=== PATIENT | female | born 1960 | race Two or more races ===

== ENCOUNTER → 2017-11-21 11:11 | Outpatient (CLI) | payer OTHER ==
[~2017-11-21] VITALS: Ht 152.4 cm; Wt 84.4 kg
[~2017-11-21 11:11] MED LIST: AMOXICILLIN500 MG PO; BACLOFEN10 MG PO; BUCALSEP SPRAY30 ML MM; CATAFLAM50 MG PO; CIPRO500 MG PO; CONJUGATED ESTROGENS PO; COZAAR25 MG; COZAAR25 MG PO; DICLOFENAC POTA50 MG PO; DICLOFENAC SOD100 MG PO; ESTR0.624 PO; GILTUSS TR TAB1 EACH PO; GLUCOPHAGE XR500 MG PO; GLUCOTROL 10 MG PO; GLUCOTROL10 MG; GLUCOTROL10 MG PO; INDERAL LA120 MG PO; INDERAL LA80 MG; INDERAL PO; INTESTINEX1 CAP PO; LANTUS SOL100 UNIT/1 SUBCUTANEO; LANTUS100 U/ML; LANTUS100 U/ML SQ; LANTUS100 U/ML SUBCUTANEO; NORFLEX100MG PO; PREMARIN1.25 MG PO; PROTONIX40 MG PO; TESSALON PERLE100 M1 PO; TESSALON200 MG PO; VOLTAREM 50 MG PO; ZITHROMAX200 MG PO; ZITHROMAX500 MG PO; ZYRTEC10 MG PO
== END | disposition home or self-care (01) ==
LOC: PPHC 11:11
DX: J06.9 Acute upper respiratory infection, unspecified (principal); J02.8 Acute pharyngitis due to other specified organisms; R11.2 Nausea with vomiting, unspecified

== ENCOUNTER 2017-11-21 13:03 | Outpatient (CLI) | payer OTHER | END 2017-11-21 13:09 | disposition home or self-care (01) | LOC: LAB 13:03 | DX: J11.1 Influenza due to unidentified influenza virus with other respiratory manifestations (principal) ==

== ENCOUNTER 2018-01-31 14:26 | Outpatient (CLI) | payer OTHER | END 2018-01-31 14:34 | disposition home or self-care (01) | LOC: LAB 14:26 | DX: R50.9 Fever, unspecified (principal) ==

== ENCOUNTER → 2018-01-31 | Outpatient (CLI) | payer OTHER ==
[~2018-01-31] MED LIST changes: +MEDROLPACK PO
== END | disposition home or self-care (01) ==
LOC: PPHC 13:11
DX: B34.9 Viral infection, unspecified (principal)

== ENCOUNTER 2018-04-24 11:56 | Outpatient (CLI) | payer OTHER | END 2018-04-24 12:02 | disposition home or self-care (01) | LOC: LAB 11:56 | DX: I73.9 Peripheral vascular disease, unspecified (principal) ==

== ENCOUNTER → 2018-05-30 09:17 | Outpatient (CLI) | payer OTHER | END | disposition home or self-care (01) | LOC: LAB 09:17 | DX: B34.9 Viral infection, unspecified (principal) ==

== ENCOUNTER → 2018-07-26 07:06 | Outpatient (CLI) | payer OTHER ==
[~2018-07-26 07:06] MED LIST changes: +GABAPENTIN100 MG PO; +KENALOG-1010 MG/1 ML IM
== END | disposition home or self-care (01) ==
LOC: LAB 07:06
DX: I10 Essential (primary) hypertension (principal); E11.9 Type 2 diabetes mellitus without complications; Z12.11 Encounter for screening for malignant neoplasm of colon; E78.2 Mixed hyperlipidemia; I73.89 Other specified peripheral vascular diseases

== ENCOUNTER 2018-07-31 11:33 | Outpatient (CLI) | payer OTHER ==
[2018-07-31] MEDS ORDERED: NEURONTIN300 MG PO (13:49)
== END 2018-07-31 11:34 | disposition home or self-care (01) ==
LOC: LAB 11:33
DX: I10 Essential (primary) hypertension (principal); E11.9 Type 2 diabetes mellitus without complications; Z12.11 Encounter for screening for malignant neoplasm of colon; E78.2 Mixed hyperlipidemia

== ENCOUNTER → 2018-08-20 13:04 | Outpatient (CLI) | payer OTHER ==
[~2018-08-20 13:04] MED LIST changes: +NEURONTIN300 MG PO
== END | disposition home or self-care (01) ==
LOC: LAB 13:04
DX: N39.0 Urinary tract infection, site not specified (principal); E03.8 Other specified hypothyroidism

== ENCOUNTER 2018-08-20 16:45 | Outpatient (CLI) | payer OTHER | END 2018-08-20 17:15 | disposition home or self-care (01) | LOC: SONOGRAMA 16:45 | DX: N20.0 Calculus of kidney (principal); N39.0 Urinary tract infection, site not specified; E11.65 Type 2 diabetes mellitus with hyperglycemia; E55.9 Vitamin D deficiency, unspecified; R94.6 Abnormal results of thyroid function studies; R82.99 Other abnormal findings in urine; M54.2 Cervicalgia; M62.838 Other muscle spasm ==

== ENCOUNTER 2018-09-30 09:40 | Outpatient (CLI) | payer OTHER | END 2018-09-30 10:09 | disposition home or self-care (01) | LOC: LAB 09:40 | DX: N18.2 Chronic kidney disease, stage 2 (mild) (principal); I10 Essential (primary) hypertension; E11.21 Type 2 diabetes mellitus with diabetic nephropathy; R80.8 Other proteinuria; E11.65 Type 2 diabetes mellitus with hyperglycemia ==

== ENCOUNTER 2018-12-09 12:25 | Outpatient (CLI) | payer OTHER | END 2018-12-09 12:29 | disposition home or self-care (01) | LOC: SONOGRAMA 12:25 | DX: M75.41 Impingement syndrome of right shoulder (principal) ==

== ENCOUNTER 2018-12-10 10:34 | Outpatient (CLI) | payer OTHER | END 2018-12-10 10:40 | disposition home or self-care (01) | LOC: RAD 10:34 | DX: M75.41 Impingement syndrome of right shoulder (principal); Z12.31 Encounter for screening mammogram for malignant neoplasm of breast ==

== ENCOUNTER 2019-01-14 16:19 | Outpatient (CLI) | payer OTHER | END 2019-01-14 16:47 | disposition home or self-care (01) | LOC: LAB 16:19 | DX: J11.1 Influenza due to unidentified influenza virus with other respiratory manifestations (principal); J20.0 Acute bronchitis due to Mycoplasma pneumoniae ==

== ENCOUNTER 2019-02-19 16:07 | Emergency (ER) | payer OTHER ==
[~2019-02-19] VITALS: Ht 162.6 cm; Wt 78.0 kg
== END 2019-02-19 17:41 | disposition home or self-care (01) ==
LOC: ER 16:07
DX: L27.1 Localized skin eruption due to drugs and medicaments taken internally (principal); T38.0X5A Adverse effect of glucocorticoids and synthetic analogues, initial encounter; Y92.89 Other specified places as the place of occurrence of the external cause

== ENCOUNTER 2019-03-31 10:22 | Outpatient (CLI) | payer OTHER | END 2019-03-31 13:14 | disposition home or self-care (01) | LOC: LAB 10:22 | DX: I73.89 Other specified peripheral vascular diseases (principal); I10 Essential (primary) hypertension; E11.21 Type 2 diabetes mellitus with diabetic nephropathy ==

== ENCOUNTER 2019-04-01 09:27 | Outpatient (CLI) | payer OTHER | END 2019-04-01 09:59 | disposition home or self-care (01) | LOC: LAB 09:27 | DX: J11.1 Influenza due to unidentified influenza virus with other respiratory manifestations (principal); J11.89 Influenza due to unidentified influenza virus with other manifestations ==

== ENCOUNTER 2019-04-01 10:18 | Outpatient (CLI) | payer OTHER | END 2019-04-01 10:50 | disposition home or self-care (01) | LOC: MRI 10:18 | DX: M54.5 Low back pain (principal); M54.17 Radiculopathy, lumbosacral region | CPT/HCPCS: 72148 ==

== ENCOUNTER 2019-04-03 08:43 | Outpatient (CLI) | payer OTHER | END 2019-04-03 08:51 | disposition home or self-care (01) | LOC: RAD 08:43 | DX: R05 Cough (principal) ==

== ENCOUNTER 2019-10-31 04:28 | Emergency (ER) | payer OTHER ==
[~2019-10-31] VITALS: Ht 162.6 cm; Wt 78.0 kg
[2019-10-31] MEDS ORDERED: KETO10TA2 PO ×2 (07:08→07:09)
[2019-10-31] MEDS ORDERED: CIPRO500 MG PO (07:09)
== END 2019-10-31 07:45 ==
LOC: ER 04:28
DX: N39.0 Urinary tract infection, site not specified (principal); M54.5 Low back pain; R31.0 Gross hematuria; B96.29 Other Escherichia coli [E. coli] as the cause of diseases classified elsewhere

== ENCOUNTER 2019-12-31 16:29 | Outpatient (CLI) | payer OTHER ==
[~2019-12-31 16:29] MED LIST changes: +KETO10TA2 PO
== END 2019-12-31 16:35 | disposition home or self-care (01) ==
LOC: LAB 16:29
DX: J11.1 Influenza due to unidentified influenza virus with other respiratory manifestations (principal)

== ENCOUNTER 2020-01-05 21:29 | Emergency (ER) | payer OTHER ==
[~2020-01-05] VITALS: Ht 162.6 cm; Wt 77.1 kg
[2020-01-05] MEDS ORDERED: TUSNEL LIQUID178 ML PO (23:05)
[2020-01-05] MEDS ORDERED: LEVAQUIN750 MG PO (23:05)
== END 2020-01-05 23:03 | disposition home or self-care (01) ==
LOC: ER 21:29
DX: R06.02 Shortness of breath (principal)

== ENCOUNTER 2020-01-09 07:50 | Outpatient (CLI) | payer OTHER ==
[~2020-01-09 07:50] MED LIST changes: +LEVAQUIN750 MG PO; +TUSNEL LIQUID178 ML PO
== END 2020-01-09 08:01 | disposition home or self-care (01) ==
LOC: LAB 07:50
DX: J06.9 Acute upper respiratory infection, unspecified (principal)

== ENCOUNTER 2020-02-23 08:55 | Outpatient (CLI) | payer OTHER | END 2020-02-23 09:13 | disposition home or self-care (01) | LOC: LAB 08:55 | DX: J11.1 Influenza due to unidentified influenza virus with other respiratory manifestations (principal); J06.9 Acute upper respiratory infection, unspecified ==

== ENCOUNTER 2020-06-04 13:00 | Emergency (ER) | payer OTHER ==
[~2020-06-04] VITALS: Ht 162.6 cm; Wt 76.2 kg
[2020-06-04] MEDS ORDERED: KETO10TA2 PO (14:01)
== END 2020-06-04 14:05 | disposition home or self-care (01) ==
LOC: ER 13:00
DX: S60.041A Contusion of right ring finger without damage to nail, initial encounter (principal); W23.0XXA Caught, crushed, jammed, or pinched between moving objects, initial encounter; Y93.89 Activity, other specified; Y92.238 Other place in hospital as the place of occurrence of the external cause; Y99.8 Other external cause status

== ENCOUNTER 2020-08-03 15:00 | Outpatient (CLI) | payer OTHER | END 2020-08-06 14:54 | disposition home or self-care (01) | LOC: PPH VACUNA 15:00 | DX: Z23 Encounter for immunization (principal) ==

== ENCOUNTER 2020-08-17 08:28 | Emergency (ER) | payer OTHER ==
[~2020-08-17] VITALS: Ht 162.6 cm; Wt 73.9 kg
[2020-08-17] MEDS ORDERED: ACETAMINOPHEN650 M2 PO (12:50)
[2020-08-17] MEDS ORDERED: VITAMIN C1000 MG PO (12:50)
[2020-08-17] MEDS ORDERED: AZITHROMYCIN250 MG PO (12:50)
== END 2020-08-17 13:13 | disposition home or self-care (01) ==
LOC: ER 08:28
DX: B34.9 Viral infection, unspecified (principal); Z03.818 Encounter for observation for suspected exposure to other biological agents ruled out

== ENCOUNTER → 2020-08-23 07:32 | Outpatient (CLI) | payer OTHER ==
[~2020-08-23 07:32] MED LIST changes: +ACETAMINOPHEN650 M2 PO; +AZITHROMYCIN250 MG PO; +BUTALBIT-ACETA1 EACH PO; +HYDROCHLOROTHIA25 MG; +VITAMIN C1000 MG PO; +XOPENEX0.63 MG/3 IH
== END | disposition home or self-care (01) ==
LOC: LAB 07:32
PROVIDERS: ATTEND General Practice
DX: R05 Cough (principal); Z03.818 Encounter for observation for suspected exposure to other biological agents ruled out; R50.9 Fever, unspecified; R06.02 Shortness of breath

== ENCOUNTER 2020-08-24 05:47 | Emergency (ER) | payer OTHER ==
[~2020-08-24] VITALS: Ht 162.6 cm; Wt 74.8 kg
[~2020-08-24 05:47] MED LIST changes: -BUTALBIT-ACETA1 EACH PO; -HYDROCHLOROTHIA25 MG; -XOPENEX0.63 MG/3 IH
[2020-08-24] MEDS ORDERED: HYDROCHLOROTHIA25 MG (06:00)
[2020-08-24] MEDS ORDERED: XOPENEX0.63 MG/3 IH (06:52)
[2020-08-24] MEDS ORDERED: TUSNEL LIQUID178 ML PO (06:52)
[2020-08-24] MEDS ORDERED: BUTALBIT-ACETA1 EACH PO (07:09)
== END 2020-08-24 07:36 | disposition home or self-care (01) ==
LOC: ER 05:47
DX: R05 Cough (principal)

== ENCOUNTER → 2020-09-15 07:35 | Outpatient (CLI) | payer OTHER ==
[~2020-09-15 07:35] MED LIST changes: +BUTALBIT-ACETA1 EACH PO; +HYDROCHLOROTHIA25 MG; +XOPENEX0.63 MG/3 IH
== END | disposition home or self-care (01) ==
LOC: LAB 07:35
PROVIDERS: ATTEND Internal Medicine Cardiovascular Disease
DX: I10 Essential (primary) hypertension (principal); E11.9 Type 2 diabetes mellitus without complications; E03.8 Other specified hypothyroidism; E78.2 Mixed hyperlipidemia; E55.9 Vitamin D deficiency, unspecified; J44.9 Chronic obstructive pulmonary disease, unspecified; M12.88 Other specific arthropathies, not elsewhere classified, other specified site

== ENCOUNTER 2020-09-29 08:57 | Outpatient (CLI) | payer OTHER | END 2020-09-29 08:59 | disposition home or self-care (01) | LOC: SONOGRAMA 08:57 | PROVIDERS: ATTEND Internal Medicine Cardiovascular Disease | DX: M12.812 Other specific arthropathies, not elsewhere classified, left shoulder (principal); N60.02 Solitary cyst of left breast; N60.01 Solitary cyst of right breast ==

== ENCOUNTER 2020-09-29 11:06 | Outpatient (CLI) | payer OTHER | END 2020-09-29 11:14 | disposition home or self-care (01) | LOC: NUCLEAR 11:06 | PROVIDERS: ATTEND Internal Medicine Cardiovascular Disease | DX: M81.0 Age-related osteoporosis without current pathological fracture (principal); E55.9 Vitamin D deficiency, unspecified ==

== ENCOUNTER 2020-10-27 08:12 | Emergency (ER) | payer OTHER ==
[~2020-10-27] VITALS: Ht 162.6 cm; Wt 78.0 kg
[2020-10-27] MEDS ORDERED: TESSALON PERLE100 M1 PO (12:13)
[2020-10-27] MEDS ORDERED: ZITHROMAX500 MG PO (12:13)
== END 2020-10-27 12:51 | disposition home or self-care (01) ==
LOC: ER 08:12
DX: B34.9 Viral infection, unspecified (principal); Z03.818 Encounter for observation for suspected exposure to other biological agents ruled out

== ENCOUNTER → 2020-11-09 14:04 | Outpatient (CLI) | payer OTHER | END | disposition home or self-care (01) | LOC: PPH VACUNA 14:04 | DX: Z23 Encounter for immunization (principal) ==

== ENCOUNTER 2021-01-05 06:25 | Outpatient (CLI) | payer OTHER | END 2021-01-05 06:31 | disposition home or self-care (01) | LOC: LAB 06:25 | PROVIDERS: ATTEND Internal Medicine Cardiovascular Disease | DX: I10 Essential (primary) hypertension (principal); E11.9 Type 2 diabetes mellitus without complications; E03.8 Other specified hypothyroidism; E78.2 Mixed hyperlipidemia; R05 Cough; R50.9 Fever, unspecified; Z20.828 Contact with and (suspected) exposure to other viral communicable diseases ==

== ENCOUNTER → 2021-01-17 06:31 | Outpatient (CLI) | payer OTHER | END | disposition home or self-care (01) | LOC: LAB 06:31 | PROVIDERS: ATTEND Internal Medicine Gastroenterology | DX: R74.01 Elevation of levels of liver transaminase levels (principal) ==

== ENCOUNTER 2021-02-08 11:02 | Outpatient (CLI) | payer OTHER | END 2021-02-08 11:07 | disposition home or self-care (01) | LOC: SONOGRAMA 11:02 → MAMO-SONO 13:30 | PROVIDERS: ATTEND Internal Medicine Gastroenterology | DX: R74.01 Elevation of levels of liver transaminase levels (principal) ==

== ENCOUNTER → 2021-05-17 06:13 | Outpatient (CLI) | payer OTHER ==
[~2021-05-17 06:13] MED LIST changes: +AZITHROMYCIN500 MG PO; +CATAFLAN; +METOCLOPRAMIDE10 MG PO; +MOTRIN 600 MG; +MUCINEX DM ER1 EAC1 PO; +PEPCID AC20 MG PO; +PROTONIX40 M1
== END | disposition home or self-care (01) ==
LOC: RAD 06:13
PROVIDERS: ATTEND General Practice
DX: R07.89 Other chest pain (principal); R76.11 Nonspecific reaction to tuberculin skin test without active tuberculosis

== ENCOUNTER 2021-05-20 | Emergency (ER) | payer OTHER ==
[~2021-05-20] VITALS: Ht 162.6 cm; Wt 75.7 kg
[~2021-05-20] MED LIST changes: -AZITHROMYCIN500 MG PO; -CATAFLAN; -METOCLOPRAMIDE10 MG PO; -MOTRIN 600 MG; -MUCINEX DM ER1 EAC1 PO; -PEPCID AC20 MG PO; -PROTONIX40 M1
[2021-05-20] MEDS ORDERED: PROTONIX40 M1 (00:19)
[2021-05-20] MEDS ORDERED: CATAFLAN (00:23)
[2021-05-20] MEDS ORDERED: MOTRIN 600 MG (00:24)
[2021-05-20] MEDS ORDERED: CIPRO500 MG PO (06:15)
[2021-05-20] MEDS ORDERED: KETO10TA2 PO (06:15)
[2021-06-01] MEDS ORDERED: DICLOFENAC POTA50 MG PO (16:26)
[2021-06-01] MEDS ORDERED: NORFLEX100MG PO (16:27)
== END 2021-05-20 06:21 | disposition home or self-care (01) ==
LOC: ER
DX: N39.0 Urinary tract infection, site not specified (principal); R10.31 Right lower quadrant pain

== ENCOUNTER → 2021-06-30 06:26 | Outpatient (CLI) | payer OTHER ==
[~2021-06-30 06:26] MED LIST changes: +AZITHROMYCIN500 MG PO; +CATAFLAN; +METOCLOPRAMIDE10 MG PO; +MOTRIN 600 MG; +MUCINEX DM ER1 EAC1 PO; +PEPCID AC20 MG PO; +PROTONIX40 M1
== END | disposition home or self-care (01) ==
LOC: LAB 06:26
PROVIDERS: ATTEND Internal Medicine Gastroenterology
DX: I10 Essential (primary) hypertension (principal); E11.9 Type 2 diabetes mellitus without complications; E03.8 Other specified hypothyroidism; E78.2 Mixed hyperlipidemia; N39.0 Urinary tract infection, site not specified

== ENCOUNTER 2021-08-01 14:21 | Emergency (ER) | payer OTHER ==
[~2021-08-01] VITALS: Ht 162.6 cm; Wt 74.8 kg
[~2021-08-01 14:21] MED LIST changes: -AZITHROMYCIN500 MG PO; -METOCLOPRAMIDE10 MG PO; -MUCINEX DM ER1 EAC1 PO; -PEPCID AC20 MG PO
[2021-08-01] MEDS ORDERED: AZITHROMYCIN500 MG PO (17:27)
[2021-08-01] MEDS ORDERED: MUCINEX DM ER1 EAC1 PO (17:27)
[2021-08-01] MEDS ORDERED: ACETAMINOPHEN650 M2 PO (17:27)
== END 2021-08-01 17:32 | disposition home or self-care (01) ==
LOC: ER 14:21
DX: B34.9 Viral infection, unspecified (principal); J06.9 Acute upper respiratory infection, unspecified; Z03.818 Encounter for observation for suspected exposure to other biological agents ruled out

== ENCOUNTER 2021-08-03 14:06 | Emergency (ER) | payer OTHER ==
[~2021-08-03] VITALS: Ht 162.6 cm; Wt 74.8 kg
[~2021-08-03 14:06] MED LIST changes: +AZITHROMYCIN500 MG PO; +MUCINEX DM ER1 EAC1 PO
[2021-08-03] MEDS ORDERED: PEPCID AC20 MG PO (22:16)
[2021-08-03] MEDS ORDERED: METOCLOPRAMIDE10 MG PO (22:16)
== END 2021-08-03 22:20 | disposition home or self-care (01) ==
LOC: ER 14:06
DX: K52.89 Other specified noninfective gastroenteritis and colitis (principal); R10.13 Epigastric pain; R11.11 Vomiting without nausea; E86.0 Dehydration; Z03.818 Encounter for observation for suspected exposure to other biological agents ruled out

== ENCOUNTER 2021-08-08 08:00 | Outpatient (CLI) | payer OTHER ==
[~2021-08-08 08:00] MED LIST changes: +METOCLOPRAMIDE10 MG PO; +PEPCID AC20 MG PO
== END 2021-08-08 08:30 | disposition home or self-care (01) ==
LOC: PPH VACUNA 08:00
PROVIDERS: ATTEND Emergency Medicine Pediatric Emergency Medicine
DX: Z23 Encounter for immunization (principal)

== ENCOUNTER → 2021-09-26 06:14 | Outpatient (CLI) | payer OTHER | END | disposition home or self-care (01) | LOC: LAB 06:14 | PROVIDERS: ATTEND Internal Medicine Gastroenterology | DX: R10.13 Epigastric pain (principal); R74.01 Elevation of levels of liver transaminase levels ==

== ENCOUNTER 2021-11-14 10:46 | Outpatient (CLI) | payer OTHER | END 2021-11-14 10:48 | disposition home or self-care (01) | LOC: LAB 10:46 | PROVIDERS: ATTEND Preventive Medicine Occupational Medicine | DX: U07.1 COVID-19 (principal) ==

== ENCOUNTER 2021-12-26 06:21 | Emergency (ER) | payer OTHER ==
[~2021-12-26] VITALS: Ht 162.6 cm; Wt 75.7 kg
== END 2021-12-26 11:09 | disposition home or self-care (01) ==
LOC: ER 06:21
DX: J06.9 Acute upper respiratory infection, unspecified (principal)

== ENCOUNTER 2022-01-23 06:10 | Outpatient (CLI) | payer OTHER | END 2022-01-23 06:11 | disposition home or self-care (01) | LOC: LAB 06:10 | PROVIDERS: ATTEND Radiology Diagnostic Radiology | DX: N20.0 Calculus of kidney (principal) ==

== ENCOUNTER 2022-01-24 07:07 | Outpatient (CLI) | payer OTHER | END 2022-01-24 07:20 | disposition home or self-care (01) | LOC: TOM 07:07 → MRI 07:07 → TOM 07:20 | PROVIDERS: ATTEND Internal Medicine Gastroenterology | DX: R10.30 Lower abdominal pain, unspecified (principal); R10.10 Upper abdominal pain, unspecified ==

== ENCOUNTER 2022-01-30 06:15 | Outpatient (CLI) | payer OTHER | END 2022-01-30 06:16 | disposition home or self-care (01) | LOC: LAB 06:15 | PROVIDERS: ATTEND Internal Medicine Gastroenterology | DX: R10.30 Lower abdominal pain, unspecified (principal); E11.9 Type 2 diabetes mellitus without complications; R10.10 Upper abdominal pain, unspecified ==

== ENCOUNTER 2022-02-27 08:00 | Outpatient (CLI) | payer OTHER | END 2022-02-27 08:30 | disposition home or self-care (01) | LOC: PPH VACUNA 08:00 | PROVIDERS: ATTEND Emergency Medicine Pediatric Emergency Medicine | DX: Z23 Encounter for immunization (principal) ==

== ENCOUNTER 2022-04-25 06:07 | Outpatient (CLI) | payer OTHER | END 2022-04-25 06:09 | disposition home or self-care (01) | LOC: LAB 06:07 | DX: E11.65 Type 2 diabetes mellitus with hyperglycemia (principal); E11.8 Type 2 diabetes mellitus with unspecified complications; E78.5 Hyperlipidemia, unspecified; E11.42 Type 2 diabetes mellitus with diabetic polyneuropathy; E11.22 Type 2 diabetes mellitus with diabetic chronic kidney disease; N18.30 Chronic kidney disease, stage 3 unspecified; Z79.4 Long term (current) use of insulin; Z79.84 Long term (current) use of oral hypoglycemic drugs; I11.9 Hypertensive heart disease without heart failure; I13.10 Hypertensive heart and chronic kidney disease without heart failure, with stage 1 through stage 4 chronic kidney disease, or unspecified chronic kidney disease; N20.0 Calculus of kidney; Z87.442 Personal history of urinary calculi ==

== ENCOUNTER 2022-05-01 06:06 | Outpatient (CLI) | payer OTHER | END 2022-05-01 06:08 | disposition home or self-care (01) | LOC: LAB 06:06 | DX: N18.30 Chronic kidney disease, stage 3 unspecified (principal); E11.22 Type 2 diabetes mellitus with diabetic chronic kidney disease; E78.2 Mixed hyperlipidemia; I13.10 Hypertensive heart and chronic kidney disease without heart failure, with stage 1 through stage 4 chronic kidney disease, or unspecified chronic kidney disease; Z87.442 Personal history of urinary calculi; N20.0 Calculus of kidney ==

== ENCOUNTER 2022-05-23 05:29 | Emergency (ER) | payer OTHER ==
[~2022-05-23] VITALS: Ht 160 cm; Wt 59.0 kg
== END 2022-05-23 10:31 | disposition home or self-care (01) ==
LOC: ER 05:29
DX: B34.9 Viral infection, unspecified (principal); J02.9 Acute pharyngitis, unspecified; Z88.0 Allergy status to penicillin; E11.9 Type 2 diabetes mellitus without complications; Z79.4 Long term (current) use of insulin; Z20.822 Contact with and (suspected) exposure to COVID-19; I10 Essential (primary) hypertension

== ENCOUNTER 2022-06-20 06:24 | Outpatient (CLI) | payer OTHER | END 2022-06-20 06:25 | disposition home or self-care (01) | LOC: LAB 06:24 | PROVIDERS: ATTEND Internal Medicine Gastroenterology | DX: K76.0 Fatty (change of) liver, not elsewhere classified (principal); R74.01 Elevation of levels of liver transaminase levels; R74.02 Elevation of levels of lactic acid dehydrogenase [LDH]; K58.1 Irritable bowel syndrome with constipation ==

== ENCOUNTER 2022-07-12 08:51 | Outpatient (CLI) | payer OTHER | END 2022-07-12 08:56 | disposition home or self-care (01) | LOC: PPH VACUNA 08:51 | PROVIDERS: ATTEND Emergency Medicine Pediatric Emergency Medicine | DX: Z23 Encounter for immunization (principal) ==

== ENCOUNTER 2022-08-14 06:22 | Outpatient (CLI) | payer OTHER | END 2022-08-14 06:23 | disposition home or self-care (01) | LOC: LAB 06:22 | PROVIDERS: ATTEND Internal Medicine Gastroenterology | DX: E11.65 Type 2 diabetes mellitus with hyperglycemia (principal); K76.0 Fatty (change of) liver, not elsewhere classified; R74.01 Elevation of levels of liver transaminase levels ==

== ENCOUNTER 2022-11-01 13:14 | Outpatient (CLI) | payer OTHER | END 2022-11-01 13:24 | disposition home or self-care (01) | LOC: RAD 13:14 | PROVIDERS: ATTEND Orthopaedic Surgery Sports Medicine | DX: M17.12 Unilateral primary osteoarthritis, left knee (principal) ==

== ENCOUNTER 2022-12-05 16:10 | Outpatient (CLI) | payer OTHER | END 2022-12-05 16:14 | disposition home or self-care (01) | LOC: RAD 16:10 | PROVIDERS: ATTEND Pediatrics | DX: S52.002A Unspecified fracture of upper end of left ulna, initial encounter for closed fracture (principal); S50.12XA Contusion of left forearm, initial encounter ==

== ENCOUNTER 2022-12-11 13:00 | Outpatient (CLI) | payer OTHER | END 2022-12-11 13:07 | disposition home or self-care (01) | LOC: RAD 13:00 | PROVIDERS: ATTEND Orthopaedic Surgery Sports Medicine | DX: R42 Dizziness and giddiness (principal); M25.522 Pain in left elbow ==

== ENCOUNTER 2023-01-30 14:41 | Emergency (ER) | payer OTHER ==
[~2023-01-30] VITALS: Ht 162.6 cm; Wt 79.8 kg
[~2023-01-30 14:41] MED LIST changes: +METAXALONE800 MG PO
== END 2023-01-30 17:37 | disposition home or self-care (01) ==
LOC: ER 14:41
DX: J06.9 Acute upper respiratory infection, unspecified (principal); Z20.822 Contact with and (suspected) exposure to COVID-19

== ENCOUNTER 2023-08-17 07:09 | Outpatient (CLI) | payer OTHER | END 2023-08-17 07:19 | disposition home or self-care (01) | LOC: PPH VACUNA 07:09 | PROVIDERS: ATTEND Emergency Medicine Pediatric Emergency Medicine | DX: Z23 Encounter for immunization (principal) ==

== ENCOUNTER 2023-10-24 15:59 | Emergency (ER) | payer OTHER ==
[~2023-10-24] VITALS: Ht 162.6 cm; Wt 76.2 kg
== END 2023-10-24 17:43 | disposition home or self-care (01) ==
LOC: ER 15:59
DX: M54.9 Dorsalgia, unspecified (principal); Z88.0 Allergy status to penicillin; Z88.6 Allergy status to analgesic agent

== ENCOUNTER 2023-12-03 09:07 | Outpatient (CLI) | payer OTHER | END 2023-12-03 09:09 | disposition home or self-care (01) | LOC: MAMO-SONO 09:07 | PROVIDERS: ATTEND Internal Medicine Cardiovascular Disease | DX: N60.11 Diffuse cystic mastopathy of right breast (principal); N60.12 Diffuse cystic mastopathy of left breast; Z12.31 Encounter for screening mammogram for malignant neoplasm of breast ==

== ENCOUNTER 2023-12-12 11:10 | Outpatient (CLI) | payer OTHER | END 2023-12-12 11:23 | disposition home or self-care (01) | LOC: MRI 11:10 | PROVIDERS: ATTEND Physical Medicine & Rehabilitation | DX: M77.12 Lateral epicondylitis, left elbow (principal) | CPT/HCPCS: 73221 ==

== ENCOUNTER 2024-01-02 12:27 | Outpatient (CLI) | payer OTHER | END 2024-01-02 12:29 | disposition home or self-care (01) | LOC: NUCLEAR 12:27 | PROVIDERS: ATTEND Internal Medicine Cardiovascular Disease | DX: M81.0 Age-related osteoporosis without current pathological fracture (principal) ==

== ENCOUNTER 2024-01-22 12:49 | Emergency (ER) | payer OTHER ==
[~2024-01-22] VITALS: Ht 162.6 cm; Wt 79.8 kg
[2024-01-22 14:41] LABS: HEMATOCRIT 40.8 % (36.0-45.00); HEMOGLOBIN 13.9 g/dL (12.0-15.00); MEAN CELL VOLUME 92.9 fL (80.00-100.00); MEAN CORPUSCULAR HEMOGLOBIN 31.5 pg (27.00-32.0); MEAN CORPUSCULAR HGB CONC 33.9 g/dl (32.0-36.0); PLATELET COUNT 217 K/uL (150-450); RED CELL DISTRIBUTION WIDTH 13.5 % (11.5-14.5)
[2024-01-22] MEDS ORDERED: PAXLOVID 300-11 EAC1 PO (15:12)
[2024-01-22] MEDS ORDERED: KETOROLAC TROMETHAMINE 30 MG VIAL IM ONE (15:15)
[2024-01-22] MEDS ORDERED: GUAIFENESIN/DEXTROMETHORPHAN 100 MG/5 ML ML PO ONE (15:15)
== END 2024-01-22 15:28 | disposition home or self-care (01) ==
LOC: ER 12:49
PROVIDERS: General Practice
DX: U07.1 COVID-19 (principal); Z88.0 Allergy status to penicillin; Z88.8 Allergy status to other drugs, medicaments and biological substances

== ENCOUNTER 2024-01-29 10:41 | Emergency (ER) | payer OTHER ==
[~2024-01-29] VITALS: Ht 162.6 cm; Wt 79.8 kg
[~2024-01-29 10:41] MED LIST changes: +PAXLOVID 300-11 EAC1 PO
[2024-01-29] MEDS ORDERED: FAMOtidine 10 MG/ML (4ML VIAL) IV STA (11:25)
[2024-01-29] MEDS ORDERED: 0.9 % SODIUM CHLORIDE 1,000 ML IV STA (11:25)
[2024-01-29] MEDS ORDERED: ONDANSETRON HCL 2 MG/ML VIAL IV STA (11:26)
[2024-01-29] MEDS ORDERED: KETOROLAC TROMETHAMINE 30 MG VIAL IV ONE (12:00)
[2024-01-29 12:25] LABS: HEMATOCRIT 37.6 % (36.0-45.00); HEMOGLOBIN 12.8 g/dL (12.0-15.00); MEAN CELL VOLUME 91.4 fL (80.00-100.00); PLATELET COUNT 211 K/uL (150-450); RED BLOOD COUNT 4.11 M/uL (4.00-6.00); RED CELL DISTRIBUTION WIDTH 13.1 % (11.5-14.5)
[2024-01-29 12:52] LABS: CALCIUM 9.5 mg/dL (8.5-10.1); CREATININE SERUM 1.08 mg/dL (0.55-1.02); GFR 51.07; POTASSIUM 3.61 mEq/L (3.5-5.1)
== END 2024-01-29 13:56 | disposition home or self-care (01) ==
LOC: ER 10:42
PROVIDERS: General Practice
DX: U07.1 COVID-19 (principal); A08.39 Other viral enteritis; E11.9 Type 2 diabetes mellitus without complications; Z79.4 Long term (current) use of insulin; I10 Essential (primary) hypertension; Z88.0 Allergy status to penicillin; Z88.8 Allergy status to other drugs, medicaments and biological substances

== ENCOUNTER 2024-08-01 05:51 | Emergency (ER) | payer OTHER ==
[~2024-08-01] VITALS: Ht 162.6 cm; Wt 79.8 kg
[2024-08-01] MEDS ORDERED: ATACAND16 MG (05:58)
[2024-08-01] MEDS ORDERED: CLINDAMYCIN PHOSPHATE 150 MG/ML (300mg) IM STA (06:26)
[2024-08-01] MEDS ORDERED: HYDROCODONE/CHLORPHEN P-STIREX 5 ML ML PO STA (06:26)
[2024-08-01] MEDS ORDERED: CLINDAMYCIN PHOSPHATE 150 MG/ML (300mg) ONE (06:30)
== END 2024-08-01 06:39 | disposition home or self-care (01) ==
LOC: ER 05:52
DX: J03.90 Acute tonsillitis, unspecified (principal); Z88.0 Allergy status to penicillin; Z88.8 Allergy status to other drugs, medicaments and biological substances

== ENCOUNTER 2024-08-04 09:38 | Emergency (ER) | payer OTHER ==
[~2024-08-04] VITALS: Ht 162.6 cm; Wt 77.1 kg
[~2024-08-04 09:38] MED LIST changes: +ATACAND16 MG
[2024-08-04] MEDS ORDERED: METHYLPREDNISOLONE SOD SUCC 40 MG VIAL IM ONE (11:00)
[2024-08-04] MEDS ORDERED: BENZONATATE 200 MG CAPSULE PO ONE (11:00)
[2024-08-04] MEDS ORDERED: LEVALBUTEROL HCL 1.25 MG/3 ML SOLUTION IH ONE (11:00)
[2024-08-04] MEDS ORDERED: CIPROFLOXACIN IN 5 % DEXTROSE 200 MG/100 ML PIGGYBAG IV ONE (11:11)
[2024-08-04] MEDS ORDERED: TETRACAINE HCL 20 DR/ML DROPS OP ONE (11:15)
[2024-08-04 12:01] LABS: HEMATOCRIT 39.6 % (36.0-45.00); HEMOGLOBIN 13.4 g/dL (12.0-15.00); MEAN CELL VOLUME 92.6 fL (80.00-100.00); MEAN CORPUSCULAR HEMOGLOBIN 31.3 pg (27.00-32.0); MEAN CORPUSCULAR HGB CONC 33.8 g/dl (32.0-36.0); PLATELET COUNT 243 K/uL (150-450); RED BLOOD COUNT 4.27 M/uL (4.00-6.00); RED CELL DISTRIBUTION WIDTH 13.1 % (11.5-14.5)
[2024-08-04 14:11] LABS: PH,URINE 6.5 (5.0-8.0); URINE APPEARANCE Clear; URINE BILIRRUBIN Negative (NEGATIVE); URINE BLOOD Negative; URINE COLOR Yellow; URINE GLUCOSE Negative (NEGATIVE); URINE KETONE Negative (NEGATIVE); URINE LEUKOCYTE Small; URINE NITRATE Negative; URINE PROTEIN Negative (NEGATIVE); URINE UROBILINOGEN 0.2 E.U./dl
[2024-08-04 14:12] LABS: URINE BACTERIA 162.3 uL (0.0-1933); URINE EPITHELIAL CELLS 3.7 uL (0.0-38.8); URINE RBC 4.1 uL (0.0-20.8); URINE WBC 142.8 uL (0.0-23.2)
[2024-08-04 14:47] LABS: ALBUMIN 3.3 gm/dL (3.4-5.0); BILIRUBIN TOTAL 0.26 mg/dL (0.3-1.2); CALCIUM 10.1 mg/dL (8.5-10.1); CREATININE SERUM 1.1 mg/dL (0.55-1.02); GLOBULINA 5.2 G/DL (2.4-3.5); POTASSIUM 4.47 mEq/L (3.5-5.1); TOTAL PROTEIN 8.5 gm/dL (6.4-8.2)
== END 2024-08-04 18:57 | disposition home or self-care (01) ==
LOC: ER 09:39
PROVIDERS: General Practice
DX: H10.89 Other conjunctivitis (principal); E11.9 Type 2 diabetes mellitus without complications; Z79.4 Long term (current) use of insulin; I10 Essential (primary) hypertension; Z20.822 Contact with and (suspected) exposure to COVID-19; Z88.0 Allergy status to penicillin; Z88.8 Allergy status to other drugs, medicaments and biological substances

== ENCOUNTER → 2024-12-20 07:56 | Outpatient (CLI) | payer OTHER ==
[2024-12-20 09:04] LABS: URINE APPEARANCE Cloudy; URINE BILIRRUBIN Negative (NEGATIVE); URINE BLOOD Negative; URINE COLOR Dark Yellow; URINE GLUCOSE Negative (NEGATIVE); URINE KETONE 15 (NEGATIVE); URINE LEUKOCYTE Large; URINE NITRATE Positive; URINE PROTEIN 30 (NEGATIVE); URINE UROBILINOGEN 0.2 E.U./dl
[2024-12-20 09:09] LABS: URINE CAST 4.27 uL (0.0-1.40); URINE EPITHELIAL CELLS 10.7 uL (0.0-38.8); URINE RBC 9.7 uL (0.0-20.8); URINE WBC 1967.8 uL (0.0-23.2)
[2024-12-20 09:29] LABS: URINE BACTERIA > 9821.5 uL (0.0-1933)
[2024-12-20 09:46] LABS: HEMATOCRIT 39.5 % (36.0-45.00); HEMOGLOBIN 13.4 g/dL (12.0-15.00); MEAN CELL VOLUME 93.1 fL (80.00-100.00); MEAN CORPUSCULAR HEMOGLOBIN 31.5 pg (27.00-32.0); MEAN CORPUSCULAR HGB CONC 33.8 g/dl (32.0-36.0); PLATELET COUNT 192 K/uL (150-450); RED BLOOD COUNT 4.25 M/uL (4.00-6.00); RED CELL DISTRIBUTION WIDTH 12.8 % (11.5-14.5)
[2024-12-20 10:50] LABS: ALBUMIN 3.5 gm/dL (3.4-5.0); BILIRUBIN TOTAL 0.4 mg/dL (0.3-1.2); CALCIUM 9.4 mg/dL (8.5-10.1); CHOL HDL RATIO 5.8 (0-5.0); CREATININE SERUM 1.15 mg/dL (0.55-1.02); GFR 47.35; GLOBULINA 4.3 G/DL (2.4-3.5); POTASSIUM 3.87 mEq/L (3.5-5.1); T4 TOTAL 13.19 UG/DL (4.8-13.9); TOTAL PROTEIN 7.8 gm/dL (6.4-8.2)
[2024-12-20 10:55] LABS: TSH 5.22 uIU/mL (0.358-3.74)
[2024-12-21 14:15] LABS: T3 TOTAL 1.84 ng/ml (0.846-2.02); VITAMIN D3 25 HYDROXY 28.76 ng/ml (30-120)
== END | disposition home or self-care (01) ==
LOC: LAB 07:56
PROVIDERS: ATTEND Internal Medicine Cardiovascular Disease
DX: E03.9 Hypothyroidism, unspecified (principal); I10 Essential (primary) hypertension; E11.9 Type 2 diabetes mellitus without complications; E78.2 Mixed hyperlipidemia; D64.0 Hereditary sideroblastic anemia; E55.9 Vitamin D deficiency, unspecified; M81.0 Age-related osteoporosis without current pathological fracture

== ENCOUNTER 2025-03-13 07:20 | Outpatient (CLI) | payer OTHER ==
[2025-03-13 07:57] LABS: HEMATOCRIT 37.6 % (36.0-45.00); HEMOGLOBIN 12.5 g/dL (12.0-15.00); MEAN CELL VOLUME 93.7 fL (80.00-100.00); MEAN CORPUSCULAR HEMOGLOBIN 31.3 pg (27.00-32.0); MEAN CORPUSCULAR HGB CONC 33.4 g/dl (32.0-36.0); PLATELET COUNT 231 K/uL (150-450); RED BLOOD COUNT 4.01 M/uL (4.00-6.00); RED CELL DISTRIBUTION WIDTH 13.8 % (11.5-14.5)
[2025-03-13 08:55] LABS: CALCIUM 9.7 mg/dL (8.5-10.1); CHOL HDL RATIO 4.5 (0-5.0); CREATININE SERUM 1.13 mg/dL (0.55-1.02); GFR 48.32; POTASSIUM 3.8 mEq/L (3.5-5.1); T4 TOTAL 10.35 UG/DL (4.8-13.9)
[2025-03-13 09:00] LABS: TSH 5.82 uIU/mL (0.358-3.74)
[2025-03-13 22:02] LABS: PH,URINE 7.5 (5.0-8.0); URINE APPEARANCE Clear; URINE BILIRRUBIN Negative (NEGATIVE); URINE BLOOD Negative; URINE COLOR Yellow; URINE KETONE Negative (NEGATIVE); URINE LEUKOCYTE Moderate; URINE NITRATE Negative; URINE PROTEIN Negative (NEGATIVE); URINE UROBILINOGEN 0.2 E.U./dl
[2025-03-13 22:03] LABS: URINE BACTERIA 1594.4 uL (0.0-1933); URINE EPITHELIAL CELLS 7.5 uL (0.0-38.8); URINE WBC 253.2 uL (0.0-23.2)
[2025-03-13 22:08] LABS: URINE GLUCOSE 250 MG/DL (NEGATIVE); URINE RBC 1.4 uL (0.0-20.8)
== END 2025-03-13 07:22 | disposition home or self-care (01) ==
LOC: LAB 07:20
PROVIDERS: ATTEND Internal Medicine Cardiovascular Disease
DX: E11.9 Type 2 diabetes mellitus without complications (principal); I10 Essential (primary) hypertension; E03.9 Hypothyroidism, unspecified; E78.2 Mixed hyperlipidemia

== ENCOUNTER 2025-06-15 10:41 | Outpatient (CLI) | payer OTHER ==
[2025-06-15 11:17] LABS: URINE APPEARANCE Clear; URINE BILIRRUBIN Negative (NEGATIVE); URINE BLOOD Negative; URINE COLOR Yellow; URINE GLUCOSE Negative (NEGATIVE); URINE KETONE Negative (NEGATIVE); URINE LEUKOCYTE Small; URINE NITRATE Negative; URINE PROTEIN Negative (NEGATIVE); URINE UROBILINOGEN 0.2 E.U./dl
[2025-06-15 11:21] LABS: BASO % 0.6 % (0.1-1.2); EOS # 0.28 (0.04-0.54); EOS % 2.0 % (0.7-7.0); LYMPH # 3.65 (1.18-3.74); LYMPH % 26.4 % (19.3-53.1); MEAN PLATELET VOLUME 10.10 fl (9.4-12.4); MONO # 1.10 (0.24-0.82); MONO % 7.9 % (4.7-12.5); NEUT # 8.67 (1.56-6.13); NEUT % 62.7 % (34.0-71.1); RED CELL DISTRIBUTION WIDTH 12.6 % (11.6-14.4)
[2025-06-15 11:22] LABS: URINE BACTERIA 3975.6 uL (0.0-1933); URINE EPITHELIAL CELLS 10.9 uL (0.0-38.8); URINE WBC 160.6 uL (0.0-23.2)
[2025-06-15 11:51] LABS: URINE CAST 0.29 uL (0.0-1.40); URINE RBC 1.9 uL (0.0-20.8)
[2025-06-15 12:07] LABS: ALT/SGPT 36.0 U/L (12-78); AST/SGOT 23.0 U/L (15-37); BILIRUBIN TOTAL 0.4 mg/dL (0.3-1.2); BUN CREA RATIO 21.0 (7.0-25.0); CHOL HDL RATIO 3.2 (0-5.0); CREATININE SERUM 0.96 mg/dL (0.55-1.02); GFR 58.33; GLOBULINA 4.5 G/DL (2.4-3.5); GLUCOSE FASTING 73.0 mg/dL (65-100); HDL 49.0 mg/dl (40-60); LDL 31.0 mg/dl (0-130); OSMOLALITY SERUM 279.0 MOSM/KG (275-295); T4 FREE 0.95 NG/ML (0.76-1.46); TSH 3.92 uIU/mL (0.358-3.74); VLDL 76.0 (0-39)
== END 2025-06-15 10:43 | disposition home or self-care (01) ==
LOC: LAB 10:41
PROVIDERS: ATTEND Internal Medicine
DX: E11.65 Type 2 diabetes mellitus with hyperglycemia (principal); E78.5 Hyperlipidemia, unspecified; I10 Essential (primary) hypertension; E03.8 Other specified hypothyroidism

== ENCOUNTER 2025-07-21 11:11 | Outpatient (CLI) | payer OTHER ==
[2025-07-21 11:34] LABS: BASO % 0.8 % (0.1-1.2); EOS # 0.45 (0.04-0.54); EOS % 3.4 % (0.7-7.0); LYMPH # 3.02 (1.18-3.74); LYMPH % 22.6 % (19.3-53.1); MEAN PLATELET VOLUME 10.30 fl (9.4-12.4); MONO # 1.08 (0.24-0.82); MONO % 8.1 % (4.7-12.5); NEUT # 8.63 (1.56-6.13); NEUT % 64.6 % (34.0-71.1); RED CELL DISTRIBUTION WIDTH 12.8 % (11.6-14.4)
[2025-07-21 11:52] LABS: COVID-19 AG NEGATIVE (NEGATIVE)
[2025-07-21 13:11] LABS: MYCOPLASMA PNEUMONIAE IGM REACTIVE (NO REACTIVE)
== END 2025-07-21 11:12 | disposition home or self-care (01) ==
LOC: LAB 11:11
PROVIDERS: ATTEND Internal Medicine Cardiovascular Disease
DX: J11.1 Influenza due to unidentified influenza virus with other respiratory manifestations (principal); A49.3 Mycoplasma infection, unspecified site; Z20.822 Contact with and (suspected) exposure to COVID-19

== ENCOUNTER 2025-08-25 05:38 | Emergency (ER) | payer OTHER ==
[~2025-08-25] VITALS: Ht 162.6 cm; Wt 72.6 kg
[2025-08-25] MEDS ORDERED: LEVALBUTEROL HCL 1.25 MG/3 ML SOLUTION IH ONE (07:00)
[2025-08-25] MEDS ORDERED: ACETAMINOPHEN 500 MG GEL..CAP PO ONE ×2 (07:00→07:11)
[2025-08-25] MEDS ORDERED: METHYLPREDNISOLONE SOD SUCC 125 MG VIAL IV ONE (07:00)
[2025-08-25] MEDS ORDERED: IPRATROPIUM BROMIDE 0.5 MG/2.5 ML AMPUL.NEB IH ONE (07:00)
[2025-08-25] MEDS ORDERED: HYDROCODONE/CHLORPHEN P-STIREX 5 ML ML PO ONE (07:00)
[2025-08-25] MEDS ORDERED: METHYLPREDNISOLONE SOD SUCC 125 MG VIAL ONE (07:12)
[2025-08-25 08:08] LABS: BASO % 0.6 % (0.1-1.2); EOS # 0.39 (0.04-0.54); EOS % 2.1 % (0.7-7.0); LYMPH # 2.42 (1.18-3.74); LYMPH % 12.9 % (19.3-53.1); MEAN PLATELET VOLUME 10.80 fl (9.4-12.4); MONO # 1.45 (0.24-0.82); MONO % 7.7 % (4.7-12.5); NEUT # 14.25 (1.56-6.13); NEUT % 76.3 % (34.0-71.1); RED CELL DISTRIBUTION WIDTH 13.1 % (11.6-14.4)
[2025-08-25 08:39] LABS: ALT/SGPT 44.0 U/L (12-78); AST/SGOT 31.0 U/L (15-37); BILIRUBIN TOTAL 0.39 mg/dL (0.3-1.2); BUN CREA RATIO 21.0 (7.0-25.0); CREATININE SERUM 1.11 mg/dL (0.55-1.02); GFR 49.33; GLOBULINA 5.1 G/DL (2.4-3.5); GLUCOSE FASTING 117.0 mg/dL (65-100); OSMOLALITY SERUM 279.0 MOSM/KG (275-295)
[2025-08-25 08:49] LABS: COVID-19 AG NEGATIVE (NEGATIVE)
[2025-08-25] MEDS ORDERED: IPRAT-ALBUT 0.5-3 ML IH (09:59)
[2025-08-25] MEDS ORDERED: ZITHROMAX500 MG PO (09:59)
[2025-08-25] MEDS ORDERED: MUCINEX1200 MG PO (09:59)
[2025-08-25] MEDS ORDERED: SINGULAIR10 MG PO (10:00)
[2025-08-25] MEDS ORDERED: PEPCID AC20 MG PO (10:00)
== END 2025-08-25 10:06 | disposition home or self-care (01) ==
LOC: ER 05:38
PROVIDERS: General Practice
DX: B34.9 Viral infection, unspecified (principal); Z88.0 Allergy status to penicillin; Z88.6 Allergy status to analgesic agent; I10 Essential (primary) hypertension; G43.909 Migraine, unspecified, not intractable, without status migrainosus; E11.9 Type 2 diabetes mellitus without complications; Z79.4 Long term (current) use of insulin; Z20.822 Contact with and (suspected) exposure to COVID-19; J40 Bronchitis, not specified as acute or chronic; J06.9 Acute upper respiratory infection, unspecified

== ENCOUNTER → 2025-09-14 12:05 | Outpatient (CLI) | payer OTHER ==
[~2025-09-14 12:05] MED LIST changes: +IPRAT-ALBUT 0.5-3 ML IH; +MUCINEX1200 MG PO; +SINGULAIR10 MG PO
[2025-09-14 13:31] LABS: BASO % 0.6 % (0.1-1.2); EOS # 0.50 (0.04-0.54); EOS % 4.5 % (0.7-7.0); LYMPH # 3.51 (1.18-3.74); LYMPH % 31.3 % (19.3-53.1); MEAN PLATELET VOLUME 10.80 fl (9.4-12.4); MONO # 0.78 (0.24-0.82); MONO % 7.0 % (4.7-12.5); NEUT # 6.31 (1.56-6.13); NEUT % 56.2 % (34.0-71.1); RED CELL DISTRIBUTION WIDTH 13.0 % (11.6-14.4)
[2025-09-14 14:21] LABS: ALT/SGPT 37.0 U/L (12-78); AST/SGOT 25.0 U/L (15-37); BILIRUBIN TOTAL 0.33 mg/dL (0.3-1.2); BUN CREA RATIO 24.0 (7.0-25.0); CHOL HDL RATIO 3.0 (0-5.0); CREATININE SERUM 0.96 mg/dL (0.55-1.02); GFR 58.33; GLOBULINA 3.8 G/DL (2.4-3.5); GLUCOSE FASTING 82.0 mg/dL (65-100); HDL 52.0 mg/dl (40-60); LDL 50.0 mg/dl (0-130); OSMOLALITY SERUM 286.0 MOSM/KG (275-295); VLDL 54.0 (0-39)
== END | disposition home or self-care (01) ==
LOC: LAB 12:05
PROVIDERS: ATTEND Internal Medicine
DX: E11.65 Type 2 diabetes mellitus with hyperglycemia (principal); E78.5 Hyperlipidemia, unspecified; I10 Essential (primary) hypertension